=== PATIENT | female | born 1985 | race American Indian/Alaskan Native ===

== ENCOUNTER 2016-11-09 05:27 | Emergency (ER) | payer SELFPAY ==
[2016-11-09 06:05] VITALS: BP 130/89
[2016-11-09] MEDS ORDERED: DELTASONE PO ONE (07:31)
--- NOTE | 2016-11-09 07:32 | Emergency Department Report ---
Upper Extremity - HPI Chief Complaint: Extremity Problem,Nontraumatic Stated Complaint: LEFT HAND PAIN Time Seen by Provider: 11/09/16 07:13 Upper Extremity: Left Hand (pain) Occurred When: Today Mechanism: Unsure Severity: moderate Symptoms: Yes Pain with Movement (left hand), No Deformity, No Limited Range of Movement, No Numbness, No Weakness, No Swelling, No Bruising/Ecchymosis, No Laceration or Abrasion Other History: Patient here reporting that she woke up this morning with left hand pain. She denies any injury to left hand. Pain is 6 out of 10 and feels like a sharp pain. Has any numbness or tingling. She works as an EMT. Similar incident in the past. Denies any history of carpal tunnel. ED Review of Systems ROS: Stated complaint: LEFT HAND PAIN Other details as noted in HPI Comment: All other systems reviewed and negative Constitutional: denies: chills, fever Eyes: denies: eye pain Respiratory: no symptoms reported Cardiovascular: denies: chest pain, palpitations, edema, syncope Gastrointestinal: denies: nausea, vomiting Musculoskeletal: arthralgia. denies: back pain, joint swelling Skin: denies: rash Neurological: denies: headache, numbness, paresthesias ED Past Medical Hx - Past Medical History Previous Medical History?: Yes - Surgical History Past Surgical History?: Yes Additional Surgical History: ECTOPIC - Family History Family history: no significant - Social History Smoking Status: Never Smoker Substance Use Type: None - Medications Home Medications: Home Medications Medication Instructions Recorded Confirmed Last Taken Type Ibuprofen [Motrin] 600 mg PO Q8H PRN #15 tablet 11/09/16 Unknown Rx predniSONE [Deltasone] 20 mg PO QDAY #5 tab 11/09/16 Unknown Rx Upper Extremity Exam - Exam General: Vital signs noted. No distress. Alert and acting appropriately. This is a 31-year-old female well-nourished well-developed in no acute distress Head and Torso: No HEENT Abnormality, No Neck Tenderness, No Chest/Lungs Abnormality, No Abdominal Tenderness, No Back Tenderness Shoulder Exam: Yes Normal Range of Motion in Shoulder, No Shoulder Tenderness, No Clavicle Tenderness, No Shoulder Deformity, No AC Joint Tenderness Arm Exam: No Arm/Humerus Tenderness, No Arm Deformity Elbow: Yes Normal Range of Motion in Elbow, No Elbow Tenderness, No Elbow Deformity Forearm: No Forearm Tenderness, No Forearm Deformity, No Pain with Pronation, No Pain with Supination Wrist: Yes Normal ROM in Wrist, No Wrist Tenderness, No Wrist Deformity, No Snuffbox Tenderness, No Pain with Axial Thumb Compression Hand: Yes Hand Tenderness (dorsal aspect of hand.), Yes Normal ROM in Digit(s), No Hand Deformity, No Digit Tenderness, No Digit(s) Deformity, No Tendon Dysfunction CMS Exam: Yes Normal Distal Pulses, Yes Normal Capillary Refill, Yes Normal Distal Sensation, No Broken Skin ED Course Vital Signs 11/09/16 06:01 Temperature 99.0 F Pulse Rate 67 Respiratory 20 Rate Blood Pressure 130/89 O2 Sat by Pulse 100 Oximetry - Reevaluation(s) Reevaluation #1: 11/09/16 07:49 Significant 60 MG BY MOUTH IN THE EMERGENCY ROOM. SEE PROCEDURE NOTE FOR SPLINTING - Orthopedic Splinting/Casting Injury #1 Side: left Upper Extremity Injury Location: hand Upper Extremity Immobilizer: wrist splint ED Medical Decision Making - Radiology Data Radiology results: image reviewed interpreted by me: Reviewed by myself and Dr. Frost. X-ray of left hand reveal no fracture or dislocation. - Medical Decision Making ED course: The procedure note for splinting details. I Discussed with patient that her x-ray revealed no fracture or dislocation. I discussed with her that she will need to follow-up with orthopedic doctor for further evaluation and treatment of left hand pain that started this morning. Left hand without any redness, swelling or no signs of tendon injury. She was understanding of diagnosis and treatment plan. Condition discharged home with prescription for Motrin and prednisone. Critical care attestation.: If time is entered above; I have spent that time in minutes in the direct care of this critically ill patient, excluding procedure time. ED Disposition Clinical Impression: Left hand pain Disposition: DISCHARGED TO HOME OR SELFCARE Is pt being admited?: No Does the pt Need Aspirin: No Condition: Stable Instructions: Arthralgia (ED), RICE Therapy (ED) Additional Instructions: Rest, ice, compress and elevate the area for the next 72 hours. F/U Orthopedic doctor as instructed. Prescriptions: Ibuprofen [Motrin] 600 mg PO Q8H PRN #15 tablet PRN Reason: Pain predniSONE [Deltasone] 20 mg PO QDAY #5 tab Referrals: PRIMARY CARE, [Primary Care Provider] - 11/12/16 TROY VALENTINO MD [Staff Physician] - 3-5 Days Forms: Work/School Release Form(ED)
--- NOTE | 2016-11-09 08:48 | XRay Report ---
Left hand 3 views: History: Pain. Findings: No articular abnormality. No periosteal reaction. No fracture. No soft tissue calcification. Impression: Essentially negative left hand.
== END 2016-11-09 08:03 | disposition home or self-care (01) ==
LOC: ED 05:27
DX: M79.642 Pain in left hand (principal)
CPT/HCPCS: 29125; 73130; 99284; J7512

== ENCOUNTER → 2018-01-29 | Emergency (ER) | payer SELFPAY | LOC: ED 22:10 | DX: R21 Rash and other nonspecific skin eruption (principal); Z53.21 Procedure and treatment not carried out due to patient leaving prior to being seen by health care provider ==